=== PATIENT | female | born 1995 | race Caucasian/White ===

== ENCOUNTER 2017-03-27 16:43 | Emergency (ER) | payer SELFPAY ==
[2017-03-27] MEDS ORDERED: DIPH/PERTUSS(ACELL)/TETANUS VAC/PF 0.5 ML SYR (>=10YO) IM ONE (19:02)
[2017-03-27] MEDS ORDERED: AMOXICILLIN TR/POT CLAVULANATE 500-125 MG TAB PO ONE (19:02)
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
[2017-03-27] MEDS ORDERED: PIPERACILLIN/TAZOBACTAM 3.375 GM VIAL IV ONE (19:53)
[2017-03-27] MEDS ORDERED: VANCOMYCIN HCL INJ 1000 MG VIAL IV ONE (19:53)
[2017-03-27 23:12] VITALS: BP 114/84
== END 2017-03-27 22:45 | disposition home or self-care (01) ==
LOC: ER 16:43
DX: S61.253A Open bite of left middle finger without damage to nail, initial encounter (principal); L03.012 Cellulitis of left finger; Y04.1XXA Assault by human bite, initial encounter; Y92.009 Unspecified place in unspecified non-institutional (private) residence as the place of occurrence of the external cause; Z88.1 Allergy status to other antibiotic agents; F17.210 Nicotine dependence, cigarettes, uncomplicated; Z71.6 Tobacco abuse counseling
CPT/HCPCS: 99283; 90471; 96365; 96366; 96367; 90715; J3370; J2543